=== PATIENT | female | born 1955 | race Two or more races ===

== ENCOUNTER → 2018-10-03 | Outpatient (CLI) | payer OTHER ==
[~2018-10-03] MED LIST: CATAFLAM50 MG PO; ENALAPRIL MALE2.5 MG; METFORMIN HYDRO25 GM; MILLIPRED5 MG; ORPH100T PO
== END | disposition home or self-care (01) ==
LOC: SONOGRAMA 10:28
DX: E04.1 Nontoxic single thyroid nodule (principal)